=== PATIENT | male | born 1975 | race African-American/Black ===

== ENCOUNTER 2021-09-22 23:42 | Inpatient (IN) ==
[2021-09-23] MEDS ORDERED: cefTRIAXone 1,000 MG in SODIUM CHLORIDE 0.9% 100 ML IV STA (00:04)
[2021-09-23] MEDS ORDERED: ALBUTEROL/IPRATROPIUM 3 ML NEB RESP TX STA (00:04)
[2021-09-23] MEDS ORDERED: FUROSEMIDE 40 MG/4 ML VIAL IV STA (00:04)
[2021-09-23] MEDS ORDERED: ONDANSETRON 4 MG/2 ML VIAL IV STA (00:04)
[2021-09-23] MEDS ORDERED: methylPREDNISolone SOD SUC 125 MG/2 ML VIAL IV STA (00:04)
[2021-09-23 01:14] LABS: Basophils # 0.1 10*3/uL (0.0-0.2); Basophils % 0.8 % (0.0-0.8); Eosinophils # 0.1 10*3/uL (0.0-0.87); Eosinophils % 1.1 % (0.00-10.9); Hematocrit 40.3 VOL% (42.0-52.0); Hemoglobin 13.3 GM/DL (14.0-18.0); Immature Granulocytes % 0.3 %; Immature Granulocytes Absolute 0.03 #; Lymphocytes # 2.7 10*3/uL (1.4-4.0); Lymphocytes % 26.4 % (21.2-54.2); Mean Corpuscular Volume 90.2 FL (87-102); Monocytes % 6.6 % (1.7-12.7); Neutrophils % 64.8 % (38.7-73.9); Platelet Count 252 T/CUMM (130-400); Red Blood Count 4.47 MC/CUMM (3.8-5.5); White Blood Count 10.1 T/CUMM (4-12)
[2021-09-23 01:19] LABS: Albumin 3.4 G/DL (3.4-5.0); Bilirubin,Total 0.5 MG/DL (0.20-1.00); Calcium 9.4 MG/DL (8.5-10.1); Osmolality,Calculated 287.7 MOS/KG (273-304); Potassium 4.3 MMOL/L (3.5-5.1)
[2021-09-23 01:40] LABS: PT Patient Result 10.9 SECS (10.5-12.0)
[2021-09-23] MEDS ORDERED: guaiFENesin/DM ER 600-30 MG TABLET PO STA (02:49)
[2021-09-23] MEDS ORDERED: PIPERACILLIN/TAZOBACTAM 3,375 MG in SODIUM CHLORIDE 0.9% 100 ML IV STA (03:18)
[2021-09-23] MEDS ORDERED: ENOXAPARIN 100 MG/ML SYRINGE SUBCUT STA (03:18)
[2021-09-23] MEDS ORDERED: ENOXAPARIN 120 MG/0.8 ML SYRINGE SUBCUT STA (03:24)
[2021-09-23] MEDS ORDERED: GLUCAGON 1 MG VIAL IM PRN ×2 (03:58)
[2021-09-23] MEDS ORDERED: DEXTROSE 50% 25 GM/50 ML VIAL IV PRN (03:58)
[2021-09-23] MEDS ORDERED: ACETAMINOPHEN 325 MG TABLET PO PRN (03:58)
[2021-09-23] MEDS ORDERED: SODIUM CHLORIDE 0.9% 1,000 ML IV SCH (04:00)
[2021-09-23] MEDS ORDERED: DEXTROSE 10% 250 ML BAG IV PRN (04:31)
[2021-09-23 05:51] LABS: Basophils % 0.4 % (0.0-0.8); Eosinophils % 0.1 % (0.00-10.9); Hematocrit 42.7 VOL% (42.0-52.0); Hemoglobin 14.2 GM/DL (14.0-18.0); Immature Granulocytes % 0.3 %; Immature Granulocytes Absolute 0.03 #; Lymphocytes % 10.4 % (21.2-54.2); Mean Corpuscular HGB Conc 33.3 GM/DL (32-36); Mean Corpuscular Volume 89.7 FL (87-102); Mean Platelet Volume 9.8 FL (9.6-12.0); Monocytes % 1.1 % (1.7-12.7); Neutrophils % 87.7 % (38.7-73.9); Platelet Count 284 T/CUMM (130-400); Red Blood Count 4.76 MC/CUMM (3.8-5.5); Red Cell Distribution Width 14.9 % (9.3-17.3)
[2021-09-23 06:03] LABS: Calcium 9.5 MG/DL (8.5-10.1); Osmolality,Calculated 287.2 MOS/KG (273-304); Potassium 4.5 MMOL/L (3.5-5.1)
[2021-09-23 06:18] LABS: Lymphocytes 10 % (20-55); Nucleated Red Blood Cells 1 (0-5); Segmented Neutrophils 89 % (50-85); Total Cells Counted 100
[2021-09-23 06:22] LABS: Hypochromia Slight
[2021-09-23 06:23] LABS: Microcytosis 1+; Platelet Estimate Normal
[2021-09-23] MEDS: ALBUTEROL 2.5 MG/3 ML NEB RESP TX SCH ×2 (07:22→20:48)
[2021-09-23] MEDS: INSULIN REGULAR 100 UNIT/ML SUBCUT SCH ×2 (08:33→11:30)
[2021-09-23] MEDS ORDERED: SIMVASTATIN 20 MG TABLET PO SCH (09:00)
[2021-09-23] MEDS ORDERED: APIXABAN 5 MG TABLET PO SCH ×2 (09:00→21:00)
[2021-09-23] MEDS ORDERED: METOPROLOL SUCCINATE XL 50 MG TABLET PO SCH (09:00)
[2021-09-23] MEDS ORDERED: AZITHROMYCIN 250 MG TABLET PO SCH (09:00)
[2021-09-23] MEDS ORDERED: INSULIN NPH/REGULAR 70/30 100 UNIT/ML SUBCUT STA (10:57)
[2021-09-23] MEDS ORDERED: METOPROLOL SUCCINATE XL 50 MG TABLET PO ONE (12:54)
[2021-09-23] MEDS ORDERED: hydrALAZINE 20 MG/1 ML VIAL IV ONE (13:43)
[2021-09-23 19:20] VITALS: BP 153/105
[2021-09-23] MEDS ORDERED: INSULIN GLARGINE 100 UNIT/ML SUBCUT SCH (21:00)
[2021-09-23] MEDS ORDERED: cefTRIAXone 1,000 MG in SODIUM CHLORIDE 0.9% 100 ML IV SCH (21:00)
[2021-09-24] MEDS: ALBUTEROL 2.5 MG/3 ML NEB RESP TX SCH (05:27)
[2021-09-24] MEDS ORDERED: METOPROLOL SUCCINATE XL 100 MG TABLET PO SCH (09:00)
== END 2021-09-23 18:43 | disposition home or self-care (01) | DRG 177 ==
LOC: EDUNIT# → EDBD → N.ED 23:42 → N.EDINP 09-23 03:58
PROVIDERS: ADMIT Internal Medicine; ATTEND Internal Medicine